=== PATIENT | male | born 1970 | race Caucasian/White ===

== ENCOUNTER 2018-12-09 23:56 | Emergency (ER) | payer OTHER, SELFPAY ==
[2018-12-10 00:10] VITALS: BP 146/107; PULSE 63; RESP 15; TEMP 36.6; O2SAT 97; BMI 24.6
--- NOTE | 2018-12-10 00:50 | DI.CT.S_ITS ---
PROCEDURE: CT ABDOMEN PELVIS W CON INDICATIONS: ongoing lower abdominal pain with radiation to back TECHNIQUE: After the administration of oral and intravenous contrast, 5 mm thick sections acquired from the diaphragms to the symphysis. 5 mm thick coronal and sagittal reformats were performed. For radiation dose reduction, the following was used: automated exposure control, adjustment of mA and/or kV according to patient size. COMPARISON: None. FINDINGS: Image quality: Excellent. ABDOMEN: Lung bases: There is mild dependent atelectasis. Heart size is normal. Solid organs: There is hypoattenuation of the liver compatible with fatty infiltration. The gallbladder appears within normal limits without calcified gallstones. Biliary system is non-dilated. Pancreas enhances normally. No peripancreatic fat stranding or fluid collections. No pancreatic duct dilatation. The spleen is normal in size. No adrenal nodules. Kidneys demonstrate no hydronephrosis. There are small bilateral renal cysts as well as smaller low density foci which are too small to characterize but likely represent cysts. Peritoneum and bowel: Stomach, small bowel, and colon loops are normal in caliber and wall thickness. The appendix is not discretely visualized and may be surgically absent. No pericecal inflammatory changes to suggest appendicitis. There is colonic and diverticulosis without acute diverticulitis. No free fluid or air. Nodes and vessels: No retroperitoneal or mesenteric adenopathy. Aorta and inferior vena cava are normal in caliber. Miscellaneous: There is a small fat-containing umbilical hernia. PELVIS: Genitourinary: Bladder wall thickness is normal. Miscellaneous: No inguinal hernias or adenopathy. Bones: No suspicious bony lesions. No vertebral body compression fractures. There is moderate degenerative disc disease at L5-S1. IMPRESSION: 1. No definite acute intra-abdominal abnormality. 2. Colonic diverticulosis without acute diverticulitis. 3. Hepatic steatosis. Dictated by: Ricky South M.D. on 12/10/2018 at 8:10 Approved by: Ricky South M.D. on 12/10/2018 at 8:18
[2018-12-10 01:25] LABS: Alanine Aminotransferase 41 IU/L (21-72); Albumin 4.1 g/dL (3.5-5.0); Albumin Globulin Ratio 1.4 (1.0-2.8); Alkaline Phosphatase 41 U/L (38-126); Aspartate Aminotransferase 29 IU/L (17-59); BUN Creatinine Ratio 13.8 (6-22); Bilirubin Total 0.5 mg/dL (0.2-1.3); Blood Urea Nitrogen 11 mg/dL (9-20); Carbon Dioxide 29 mmol/L (22-32); Chloride 103 mmol/L (98-107); Estimated Glomerular Filt Rate > 60.0 mL/min (>60); Glucose 95 mg/dL (70-100); HEMOLYSIS < 15 (0-50); Potassium 3.9 mmol/L (3.4-5.1); Sodium 139 mmol/L (137-145); Total Protein 7.1 g/dL (6.3-8.2)
[2018-12-10 01:27] LABS: Add Manual Diff / Slide Review NO; Basophils Absolute Auto 0 /uL (0-100); Basophils Percent Auto 0.6 % (0-2); Eosinophils Absolute Auto 100 /uL (0-450); Eosinophils Percent Auto 2.4 % (2-4); Hematocrit 43.1 % (41-53); Hemoglobin 14.6 g/dL (13.5-17.5); Lymphocytes Absolute Auto 1800 /uL (1100-4500); Lymphocytes Percent Auto 39.3 % (25-40); Mean Corpuscular HGB Conc 33.8 % (30-36); Mean Corpuscular Hemoglobin 29.6 PG (26-34); Mean Corpuscular Volume 87.4 fL (80-100); Monocytes Absolute Auto 400 /uL (0-900); Neutrophils Absolute Auto 2200 /uL (1500-7000); Neutrophils Percent Auto 49.7 % (50-75); Platelet Count 172 X10^3/uL (150-400); Red Blood Cell Count 4.93 X10^6/uL (4.5-5.9); Red Cell Distribution Width 12.9 % (11.6-14.8); White Blood Cell Count 4.5 X10^3/uL (4.5-11.0)
--- NOTE | 2018-12-10 01:36 | PC.NURSE ---
Dr Seaman now at bedside discussing risks/benefits of CT scan.
--- NOTE | 2018-12-10 03:57 | ED.MALEGU ---
HPI - Male Genitourinary General Chief complaint: Urogenital-Male Stated complaint: groin/back pain x 1 week Time Seen by Provider: 12/10/18 00:01 Source: patient Mode of arrival: ambulatory Limitations: no limitations History of Present Illness HPI Narrative: 48-year-old nonsmoker with history of vague gastrointestinal complaints presents with a chief complaint of some burning pain from his left back around his flank into the tip of his penis. He denies any injury nor fever or chills. He is sexually active but without new partners. He does complain of some burning with urination. He denies any definitive discharge nor blood in his urine. He was seen and evaluated a few days ago with the same complaint and significant testing including blood work and evaluation of sexually transmitted diseases was performed without any significant finding. There was discussion about the possibility of a kidney stone and patient refused CAT scan but received a renal ultrasound which showed no significant findings. He presents today, stating that he has similar symptoms, certainly not worse but is preparing to vacation in the [facility] and did not feel comfortable without a repeat evaluation MD Complaint: other Onset (ago): week(s) Duration: constant Location: penis and left flank Severity: mild Quality: aching and burning Relieving factors: none Exacerbating factors: urination Reports denies other symptoms Related Data Sexually active: Yes Allergies Allergy/AdvReac Type Severity Reaction Status Date / Time No Known Drug Allergies Allergy Verified 12/10/18 00:19 Review of Systems Constitutional Denies chills, Denies fever(s), Denies lethargy and Denies weakness Eyes Denies change in vision, Denies eye discharge, Denies irritation and Denies loss of vision ENT Ears, Nose, Mouth, and Throat: Denies change in voice, Denies neck pain and Denies sore throat Cardiovascular Denies chest pain, Denies irregular heart rhythm, Denies lightheadedness, Denies palpitations, Denies dyspnea, Denies dyspnea on exertion and Denies orthopnea Respiratory Denies cough, Denies dyspnea, Denies dyspnea on exertion and Denies wheezing Gastrointestinal Gastrointestinal: Denies abdominal pain, Denies change in bowel habits, Denies diarrhea, Denies nausea and Denies vomiting Genitourinary Denies hematuria, Reports genital pain, Reports flank pain, Denies urinary incontinence and Denies urinary urgency Musculoskeletal Denies neck pain Integumentary/Breasts Denies pruritus, Denies erythema, Denies rash and Denies wounds Neurologic Denies confusion, Denies loss of vision and Denies weakness Psychiatric Denies anxiety, Denies confusion, Denies depression, Denies homicidal ideation and Denies suicidal ideation Endocrine Denies palpitations Hematologic/Lymphatic Denies easy bruising Allergic/Immunologic Denies wheezing PFSH Social History Smoking Status: Never smoker Social History Smoking Status: Never smoker Exam Narrative Exam Narrative: GENERAL: [] year old patient appears stated age. Well-nourished, well-developed patient, in mild distress. HEAD: Atraumatic. Normocephalic. EYES: Pupils equal round and reactive. Extraocular motions intact. No scleral icterus. No injection or drainage. ENT: Nose without bleeding, purulent drainage. Throat without erythema, tonsillar hypertrophy or exudate. Airway patent. NECK: Trachea midline. Non tender CARDIOVASCULAR: Regular rate and rhythm without murmurs, gallops, or rubs. RESPIRATORY: Clear to auscultation. Breath sounds equal bilaterally. No wheezes, rales, or rhonchi. GASTROINTESTINAL: Abdomen soft, non-tender, nondistended. : no penile discharge, no ulcers, no pain on palpation. No scrotal swelling, redness, tenderness. No sign of hernia EXTREMITIES: No edema or joint tenderness. BACK: Nontender without deformity or crepitance. No flank tenderness. NEURO: AOx3. SKIN: No rash or erythema of visible areas, nor of left flank, no clear fluid-filled blisters on erythematous base consistent with shingles Initial Vital Signs Initial Vital Signs: Vital Signs Temperature 97.9 F 12/10/18 00:10 Pulse Rate 63 12/10/18 00:10 Respiratory Rate 15 12/10/18 00:10 Blood Pressure 146/107 H 12/10/18 00:10 Pulse Oximetry 97 12/10/18 00:10 Course Orders Ordered: ED Orders 12/10/18 00:50 CT abdomen pelvis w con Stat 12/10/18 01:00 Complete Blood Count AUTO DIFF Stat Comprehensive Metabolic Panel Stat Vital Signs - 8 hr 12/10/18 00:10 Temperature 97.9 F Pulse Rate 63 Respiratory Rate 15 Blood Pressure 146/107 H Pulse Oximetry 97 MDM - Male Genitourinary Lab Data Result diagrams: 12/10/18 01:00 12/10/18 01:00 Lab Results 12/10/18 12/10/18 Range/Units 01:00 01:00 WBC 4.5 (4.5-11.0) X10^3/uL RBC 4.93 (4.5-5.9) X10^6/uL Hgb 14.6 (13.5-17.5) g/dL Hct 43.1 (41-53) % MCV 87.4 (80-100) fL MCH 29.6 (26-34) PG MCHC 33.8 (30-36) % RDW 12.9 (11.6-14.8) % Plt Count 172 (150-400) X10^3/uL Neut % (Auto) 49.7 L (50-75) % Lymph % (Auto) 39.3 (25-40) % [place] % (Auto) 8.0 (3-14) % Eos % (Auto) 2.4 (2-4) % Baso % (Auto) 0.6 (0-2) % Neut # (Auto) 2200 (3824-0031) /uL Lymph # (Auto) 1800 (0559-6344) /uL [place] # (Auto) 400 (0-900) /uL Eos # (Auto) 100 (0-450) /uL Baso # (Auto) 0 (0-100) /uL Sodium 139 (137-145) mmol/L Potassium 3.9 (3.4-5.1) mmol/L Chloride 103 (98-107) mmol/L Carbon Dioxide 29 (22-32) mmol/L BUN 11 (9-20) mg/dL Creatinine 0.80 (0.66-1.25) mg/dL Estimated GFR > 60.0 (>60) mL/min BUN/Creatinine Ratio 13.8 (6-22) Glucose 95 (70-100) mg/dL Calcium 9.0 (8.4-10.2) mg/dL Total Bilirubin 0.5 (0.2-1.3) mg/dL AST 29 (17-59) IU/L ALT 41 (21-72) IU/L Alkaline Phosphatase 41 (38-126) U/L Total Protein 7.1 (6.3-8.2) g/dL Albumin 4.1 (3.5-5.0) g/dL Globulin 3.0 (1.7-4.1) g/dL Albumin/Globulin Ratio 1.4 (1.0-2.8) Urine Dip Bedside Urine Glucose Negative Bedside Urine Bilirubin - Negative Bedside Urine Ketone - Negative Urine Specific [place] 1.010 Bedside Urine Occult Blood - Negative Bedside Urine pH 6.5 Bedside Urine Protein - Negative Bedside Urine Urobilinogen - Negative Bedside Urine Nitrite - Negative Bedside Urine Leukocytes - Negative Esterase Imaging Data CT scan - abdomen: Radiologist's impression: No emergent findings MDM Narrative Medical decision making narrative: Multiple etiologies for patient's symptoms considered including: [Kidney stone versus urinary tract infection versus pancreatitis versus diverticulitis] Findings and discharge diagnosis discussed with patient/family followed by verbalization of understanding Return precautions discussed with patient/family whom verbalize understanding. Discharge Plan Departure Patient Disposition: Home Clinical Impression: Feared complaint without diagnosis, Pain in penis Activity Restrictions/Additional Instructions: *You have been diagnosed with [pain in groin and penis, cat scan and blood work are very reassuring and no significant findings were noted] *What to do: *Take medications as directed *Follow up with your primary care provider in 2-3 days, call for an appointment. Let them know you were seen in the Emergency Department and that we ask that you be seen in follow up *Return to ER if you should have any new, worsening or concerning symptoms
[2018-12-10 04:34] VITALS: BP 127/91; PULSE 57; RESP 14; TEMP 36.4; O2SAT 95
== END 2018-12-10 04:36 | disposition home or self-care (01) ==
PROVIDERS: Emergency Provider Emergency Medicine
DX: Z71.1 Person with feared health complaint in whom no diagnosis is made (principal); N48.89 Other specified disorders of penis
CPT/HCPCS: 36591; 74177; 80053; 81003; 85025; 99283; 99285; Q9967